=== PATIENT | male | born 1965 | race African-American/Black ===

== ENCOUNTER 2024-11-23 09:56 | Day surgery (SDC) | payer OTHER ==
[2024-11-23] MEDS: Ringers Lactate 1,000 ML IV ONE (10:25)
[2024-11-23] MEDS ORDERED: EPHEDRINE SULF 50 MG/ML VIAL ONE (11:20)
[2024-11-23] MEDS ORDERED: LIDOCAINE 1% MPF 5 ML VIAL ONE (11:20)
[2024-11-23 13:44] VITALS: BP 116/72; TEMP 97; O2SAT 98
== END 2024-11-23 12:42 | disposition home or self-care (01) ==
LOC: OR 09:56
PROVIDERS: ATTEND Surgery
PROC: 0DBP8ZX Excision of Rectum, Via Natural or Artificial Opening Endoscopic, Diagnostic (ICD-10-PCS; principal; 2024-11-23 11:30)
DX: Z12.11 Encounter for screening for malignant neoplasm of colon (principal); K64.8 Other hemorrhoids; K63.5 Polyp of colon; I10 Essential (primary) hypertension
CPT/HCPCS: 88305; 45380; J2704; J2003; J7120